=== PATIENT | female | born 1970 | race Caucasian/White ===

== ENCOUNTER → 2024-03-31 07:52 | Outpatient (REF) | payer BC, SELFPAY ==
[2024-03-31 08:50] LABS: Urine Albumin Negative (Neg - Trace); Urine Bilirubin Negative (Negative); Urine Character Slightly Cloudy (Clear); Urine Color Yellow; Urine Glucose Negative (Negative); Urine Ketone Negative (Negative); Urine Leukocyte 2+ (Negative); Urine Nitrite Negative (Negative); Urine Occult Blood 2+ (Negative); Urine Specific Gravity 1.005 (<1.030); Urine Urobilinogen Negative (Neg - 1+); Urine pH 6.5 (5.0-9.0)
[2024-03-31 09:20] LABS: % Basophils 1.6 % (0-2); % Eosinophils 2.7 % (0-6); % Immature Granulocytes 0.2 % (0-0.5); % Monocytes 5.9 % (1.7-9.3); % Neutrophils 50.6 % (42.2-75.2); Absolute Basophils 0.1 10^3/uL (0-0.2); Absolute Eosinophils 0.1 10^3/uL (0-0.7); Absolute Lymphocytes 1.7 10^3/uL (1.2-3.4); Absolute Monocytes 0.3 10^3/uL (0.1-0.6); Absolute Neutrophils 2.2 10^3/uL (1.4-6.5); Hematocrit 43.2 % (37.0-47.0); Hemoglobin 14.9 g/dL (12.0-16.0); Mean Corp Hgb Conc. 34.5 g/dL (33.0-37.0); Mean Corpuscular Volume 87.1 fL (81.0-99.0); Mean Platelet Volume 11.9 fL (7.4-10.4); Nucleated Red Blood Cells % 0 %; Platelet Count 197 10^3/uL (130-400); Red Blood Cell Count 4.96 10^6/uL (4.20-5.40); Red Cell Dist. Width 13.3 % (11.5-14.5); White Blood Cell Count 4.4 10^3/uL (4.8-10.8)
[2024-03-31 09:25] LABS: Urine Squamous Cell >30 /LPF (Few)
[2024-03-31 09:27] LABS: Urine White Cell 16-20 /HPF (0-5)
[2024-03-31 09:28] LABS: Urine Bacteria Many (Negative)
[2024-03-31 10:17] LABS: ALT (SGPT) 16 U/L (0-35); AST (SGOT) 33 U/L (14-36); Albumin 4.6 g/dl (3.5-5.0); Alkaline Phosphatase 51 U/L (38-126); Blood Urea Nitrogen 14 mg/dl (7-17); Calcium 9.5 mg/dl (8.4-10.2); Carbon Dioxide 28 mmol/L (22-30); Chloride 104 mmol/L (98-107); Glucose 101 mg/dl (70-99); HDL Cholesterol 65 mg/dl; LDL Cholesterol, Calculated 185 mg/dl; Potassium 4.6 mmol/L (3.5-5.1); Sodium 140 mmol/L (135-145); Total Bilirubin 0.5 mg/dl (0.2-1.3); Total Cholesterol 293 mg/dl (50-199); Total Protein 7.4 g/dl (6.3-8.2); Triglyceride 218 mg/dl (10-149); Very Low Density Lipoprotein 43 mg/dl (0-30); eGFR > 60.00
[2024-03-31 10:31] LABS: Free T4 0.98 ng/dl (0.78-2.19); Vitamin D, 25-OH*** 43.8 ng/mL (30-80)
[2024-03-31 10:35] LABS: Free T3 3.39 pg/ml (2.77-5.27)
[2024-03-31 10:44] LABS: TSH 2.84 uIU/ml (0.47-4.68)
[2024-03-31 11:30] LABS: Glycohemoglobin (HgbA1c) 5.3 % (4.0-5.6)
== END ==
LOC: REG 07:52
PROVIDERS: ATTENDING PHYSICIAN Family Medicine
DX: Z13.0 Encounter for screening for diseases of the blood and blood-forming organs and certain disorders involving the immune mechanism (principal); Z13.29 Encounter for screening for other suspected endocrine disorder; Z13.1 Encounter for screening for diabetes mellitus; Z13.6 Encounter for screening for cardiovascular disorders
CPT/HCPCS: 36415; 80053; 80061; 81003; 81015; 82306; 83036; 84439; 84443; 84481; 85025; 87077; 87086; 87186